=== PATIENT | male | born 1960 | race Caucasian/White ===

== ENCOUNTER → 2025-01-15 | Outpatient (CLI) | payer MEDICAID, SELFPAY ==
--- NOTE | 2025-01-15 09:30 | XR_ITS ---
Examination: CT chest, without intravenous contrast. Sagittal and coronal 2-D reconstructions. Exam date and time: January 15, 2025, 0919 hours, comparison 12/12/2023 INDICATIONS: Subcentimeter pulmonary nodules on CT chest study 12/12/2023, smoking history 6 years CTDI:vol (mGy) 13.7 DLP: (mGycm) 526 Technique: Multiple 3.0 mm axial sections of the chest to been obtained. Bone and lung density settings are obtained. Sagittal and coronal 2-D reconstructions have been obtained. Low dose protocols were performed. One or more of the following dose reduction techniques were used; automated exposure control, adjustment of the mA and/or KV according to patient size, use of iterative reconstruction technique. Findings: No thoracic aortic aneurysmal dilatation Pulmonary artery segments are not enlarged No paratracheal or tracheobronchial bronchopulmonary adenopathy. Significant calcification left anterior descending coronary artery. Stable bilateral subcentimeter pulmonary nodules No new pulmonary nodules No pneumonia or pulmonary edema or pleural disease No visualized liver or splenic lesion No gallstones Small pancreatic calcifications Bilateral subcentimeter renal calculi, no hydronephrosis Moderate osteopenia IMPRESSION: Stable bilateral subcentimeter pulmonary nodules No new pulmonary nodules Bilateral nonobstructing renal calculi
== END | disposition home or self-care (01) ==
LOC: CCTX 09:13
PROVIDERS: PCP Nurse Practitioner Family; Referring Provider Nurse Practitioner Family; Visit Provider Nurse Practitioner Family
DX: R91.8 Other nonspecific abnormal finding of lung field (principal); N20.0 Calculus of kidney
CPT/HCPCS: 71250